=== PATIENT | male | born 1995 | race Caucasian/White ===

== ENCOUNTER 2018-05-11 00:20 | Observation (INO) | payer SELFPAY ==
[2018-05-11] MEDS ORDERED: Albuterol/Ipratropium 3.0-0.5 MG/3 ML Neb Soln ONE (00:22)
[2018-05-11] MEDS ORDERED: predniSONE 20 MG Tab PO ONE (00:26)
[2018-05-11] MEDS ORDERED: Albuterol/Ipratropium 3.0-0.5 MG/3 ML Neb Soln NEB ONE ×2 (00:27→00:35)
--- NOTE | 2018-05-11 00:29 | EDM.PDOC ---
ED HPI GENERAL MEDICAL PROBLEM - General Chief Complaint: Respiratory Problem Stated Complaint: SHORTNESS OF BREATH Time Seen by Provider: 05/11/18 00:27 - History of Present Illness INITIAL COMMENTS - FREE TEXT/NARRATIVE: HISTORY AND PHYSICAL: History of present illness: Patient is 22-year-old white male percent since her shortness of breath and wheezing started earlier tonight he denies fever chills nausea vomiting he did have asthma as a child but states he alkaloid has not use the inhaler for years Review of systems: As per history of present illness and below otherwise all systems reviewed and negative. Past medical history: As per history of present illness and as reviewed below otherwise noncontributory. Surgical history: As per history of present illness and as reviewed below otherwise noncontributory. Social history: No reported history of drug or alcohol abuse. Family history: As per history of present illness and as reviewed below otherwise noncontributory. Physical exam: HEENT: Atraumatic, normocephalic, pupils reactive, negative for conjunctival pallor or scleral icterus, mucous membranes moist, throat clear, neck supple, nontender, trachea midline. Lungs: Bilateral wheezing no rhonchi no crackles, breath sounds equal bilaterally, chest nontender. Heart: S1S2, regular, negative for clicks, rubs, or JVD. Abdomen: Soft, nondistended, nontender. Negative for masses or hepatosplenomegaly. Negative for costovertebral tenderness. Pelvis: Stable nontender. Genitourinary: Deferred. Rectal: Deferred. Extremities: Atraumatic, negative for cords or calf pain. Neurovascular unremarkable. Neuro: Awake, alert, oriented. Cranial nerves II through XII unremarkable. Cerebellum unremarkable. Motor and sensory unremarkable throughout. Exam nonfocal. Diagnostics: Chest x-ray Therapeutics: Albuterol ipratropium nebulizer prednisone 60 mg by mouth Impression: #1 reactive airway disease Definitive disposition and diagnosis as appropriate pending reevaluation and review of above. - Related Data Allergies Allergy/AdvReac Type Severity Reaction Status Date / Time No Known Allergies Allergy Verified 05/11/18 00:34 Home Meds: Home Meds . [No Known Home Meds] 05/11/18 [History] ED ROS GENERAL - Review of Systems Review Of Systems: ROS reveals no pertinent complaints other than HPI. ED EXAM, GENERAL - Physical Exam Exam: See Below (Dictation) Course - Vital Signs Text/Narrative:: Patient's emergency department course has been unremarkable he is some improvement after is not's and oral steroids chest x-ray was unremarkable but patient still said desaturates to 89% off oxygen on oxygen more comfortable in saturates at 90-93%. Patient be admitted as observation as reactive airway disease with hypoxemia Last Recorded V/S: Last Vital Signs Temp 37.7 C 05/11/18 00:31 Pulse 138 H 05/11/18 00:55 Resp 24 H 05/11/18 00:55 BP 167/107 H 05/11/18 00:31 Pulse Ox 92 L 05/11/18 00:55 - Orders/Labs/Meds Orders: Active Orders 24 hr Category Date Time Status RT Aerosol Therapy [RC] ASDIRECTED Care 05/11/18 00:27 Active RT Aerosol Therapy [RC] ASDIRECTED Care 05/11/18 00:35 Active Chest 1V Frontal [CR] Stat Exams 05/11/18 00:27 Taken CBC WITH AUTO DIFF [HEME] Stat Lab 05/11/18 02:12 Ordered CMP [COMPREHENSIVE METABOLIC PN,CMP] [CHEM] Stat Lab 05/11/18 02:12 Ordered Meds: Medications Discontinued Medications Generic Name Dose Route Start Last Admin Trade Name Freq PRN Reason Stop Dose Admin Albuterol/Ipratropium Confirm 05/11/18 00:22 05/11/18 01:45 Duoneb 3.0-0.5 Mg/3 Ml Administered 05/11/18 00:23 3 ml Dose Administration 3 ml .ROUTE .STK-MED ONE Albuterol/Ipratropium 3 ml 05/11/18 00:27 05/11/18 00:31 Duoneb 3.0-0.5 Mg/3 Ml NEB 05/11/18 00:28 3 ml ONETIME ONE Administration Albuterol/Ipratropium 3 ml 05/11/18 00:35 05/11/18 00:37 Duoneb 3.0-0.5 Mg/3 Ml NEB 05/11/18 00:36 3 ml ONETIME ONE Administration Prednisone 60 mg 05/11/18 00:26 05/11/18 00:31 Prednisone PO 05/11/18 00:27 60 mg ONETIME ONE Administration Departure - Departure Time of Disposition: 00:29 Disposition: Refer to Observation Condition: Good Clinical Impression: Reactive airway disease, Hypoxemia - Discharge Information *PRESCRIPTION DRUG MONITORING PROGRAM REVIEWED*: Not Applicable *COPY OF PRESCRIPTION DRUG MONITORING REPORT IN PATIENT [place]: Not Applicable Forms: ED Department Discharge - My Orders Last 24 Hours: My Active Orders 05/11/18 00:27 RT Aerosol Therapy [RC] ASDIRECTED Chest 1V Frontal [CR] Stat 05/11/18 00:35 RT Aerosol Therapy [RC] ASDIRECTED 05/11/18 02:12 CBC WITH AUTO DIFF [HEME] Stat CMP [COMPREHENSIVE METABOLIC PN,CMP] [CHEM] Stat - Assessment/Plan Last 24 Hours: My Active Orders 05/11/18 00:27 RT Aerosol Therapy [RC] ASDIRECTED Chest 1V Frontal [CR] Stat 05/11/18 00:35 RT Aerosol Therapy [RC] ASDIRECTED 05/11/18 02:12 CBC WITH AUTO DIFF [HEME] Stat CMP [COMPREHENSIVE METABOLIC PN,CMP] [CHEM] Stat
[2018-05-11] MEDS ORDERED: Sodium Chloride 0.9% 1,000 ML IV SCH (02:15)
[2018-05-11] MEDS ORDERED: Morphine 10 MG/ML Syringe IVPUSH PRN (02:25)
[2018-05-11] MEDS ORDERED: Sodium Chloride 0.9% 10 ML Syringe FLUSH PRN (02:25)
[2018-05-11] MEDS ORDERED: Sodium Chloride 0.9% 2.5 ML Syringe FLUSH PRN (02:25)
[2018-05-11] MEDS ORDERED: Magnesium Sulfate/Water 2 GM in Premix Bag 1 BAG IV ONE (02:28)
[2018-05-11] MEDS ORDERED: Lactated Ringers 1,000 ML IV SCH (02:30)
[2018-05-11 02:44] LABS: CHLORIDE,CL 105 mmol/L (98-107); SODIUM,NA 140 mmol/L (136-148)
[2018-05-11] MEDS ORDERED: Potassium Chloride 20 MEQ Tab.ER PO ONE ×2 (03:51→10:44)
[2018-05-11] MEDS: methylPREDNISolone Sodium Succinate 40 MG/1 ML SDV IVPUSH SCH ×5 (04:03→23:00)
[2018-05-11] MEDS: Enoxaparin 40 MG/0.4 ML Syringe SUBCUT SCH (04:07)
[2018-05-11] MEDS: Budesonide 0.5 MG/2 ML Neb Susp NEB SCH ×2 (06:29→21:00)
[2018-05-11] MEDS: Albuterol/Ipratropium 3.0-0.5 MG/3 ML Neb Soln NEB PRN ×3 (06:30→21:00)
[2018-05-11] MEDS ORDERED: Morphine 2 MG/ML Syringe IVPUSH PRN (07:36)
--- NOTE | 2018-05-11 11:31 | CR ---
EXAM DATE: 05/11/18 PATIENT'S AGE: 22 Patient: RAVIN TANG Facility: [place], [place] Site . Site : 1995 Study: XRay Chest [id number]/22/2018 12:43:24 AM Ordering Physician: Doctor Rivas Final Report: INDICATION: Shortness of breath. TECHNIQUE: Chest 1 view COMPARISON: None FINDINGS: Cardiovascular and mediastinum: Heart size and vasculature are normal in caliber and appearance. Sternal wires are present. Lungs and pleural spaces: Lungs are clear. No sign of infiltrate or mass. No sign of pleural effusion. No pneumothorax. Bones and soft tissues: No significant findings. IMPRESSION: No acute or specific findings to explain shortness of breath. Dictated by Roque Cisneros MD @ May 11 2018 12:48AM (Electronic Signature) Report Signed by Proxy. MARTINA
[2018-05-11] MEDS: Metoprolol Tartrate 25 MG Tab PO SCH (14:21)
[2018-05-11] MEDS: Pantoprazole 40 MG Tab.CR PO SCH (14:21)
[2018-05-11] MEDS ORDERED: Nitroglycerin 2% Oint 1 GM UD Packet TOP PRN (14:27)
[2018-05-11] MEDS ORDERED: Metoprolol Tartrate 25 MG Tab PO ONE (15:42)
[2018-05-11] MEDS ORDERED: Acetaminophen 325 MG Tab PO PRN (17:19)
[2018-05-11 17:44] LABS: CHLORIDE,CL 106 mmol/L (98-107); SODIUM,NA 139 mmol/L (136-148)
[2018-05-11] MEDS ORDERED: Iopamidol 755 MG/ML 200 ML Multipack Bottle IVPUSH ONE (19:49)
--- NOTE | 2018-05-11 20:44 | PCM.SN ---
- Free Text/Narrative Note: [id number]
--- NOTE | 2018-05-11 22:06 | HP ---
DATE OF : 1995 PRIMARY CARE PHYSICIAN: None PCP HISTORY OF PRESENT ILLNESS: The patient is a 22-year-old man, who presented to emergency room because of wheezing and shortness of breath that started yesterday in the afternoon. The patient did not do any strenuous activities. 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 He denies any history of asthma before, other than he was given one time inhaler in childhood. No cough. No fever. 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 During the surgery, he also had aortic dissection and bled to . As per patient, "he was medically for 20 minutes "and afterwards came back.He had an aortic stent placed in the aorta and he was advised to have no contact sports. He came from [place] 5 years ago. 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 ALLERGIES: The patient does not have any allergies. PAST SURGICAL HISTORY: As above. PAST MEDICAL HISTORY: As above in HPI. The patient had open-heart surgery at age 10 and closed _ two openings in his heart. He also had aortic disection and cardiac arrest. Regarding allergy, he also complained of stuffy nose, itchy eyes sometimes. SOCIAL HISTORY: He smokes vape. He did not smoke any cigarettes for the past six months. He used to smoke half a pack to one pack per day. Alcohol socially. No drug use. FAMILY HISTORY: Regarding his family history, he used to live with his grandmother who raised him, who has multiple sclerosis. His mom and his father, he does not have any contact with them. PHYSICAL EXAMINATION: VITAL SIGNS: At admission, the patient had a temperature of 100 Fahrenheit, pulse rate was 129, blood pressure 167/107, respiratory rate 26, and the patient was hypoxic at room air. He was saturating 92% on 3 L. HEENT: His head is atraumatic, normocephalic. Pupils are equally reactive to light. NECK: Supple. No thyromegaly. No lymphadenopathy. HEART: S1 and S2. Tachycardic. LUNGS: Decreased air entry. Bilateral wheezing. ABDOMEN: Soft, nontender. Positive bowel sounds. EXTREMITIES: No edema. NEUROLOGIC: The patient is alert and oriented x3. There are no gross focal neurologic deficits. The patient, during the acute episode of dyspnea, he had chest tightness. LABORATORY DATA: At admission, WBC 9.55, hematocrit 45.6, hemoglobin 16.6, and platelet count is 202. D-dimer less than 0.19. Sodium 140, potassium 3.1, CO2 of 27, BUN 13, creatinine 1.1, glucose 128, calcium 8.9, total bilirubin 0.5, AST 20, ALT 22, alkaline phosphatase 101. Troponin less than 0.05. Total protein 7.4, albumin 4.1, globulin 3.9. BNP 25. Chest x-ray was negative. Shows sternotomy wires. Lungs and pleural spaces are clear. His EKG shows sinus tachycardia, 116, repolarization abnormality suggest ischemia in inferior leads, ST depression, thinning at in leads II, III, and aVF. Borderline ST elevation on anterolateral leads. ST more than 0.06 mV in leads I, aVL, V2, V6. ASSESSMENT: 1. Asthma exacerbation, respiratory failure, hypoxic. 2. History of aortic dissection. 3. Abnormal EKG. 4. Ischemia on EKG. 5. Sinus tachycardia. 6. History of congenital heart defect, status post repair. 7. Vape smoking. 8. Exposure to fumes. PLAN: We will admit the patient to medical telemetry. We will order three sets of cardiac enzymes. We will give the patient Solu-Medrol. The patient was started on Solu-Medrol 60 mg q.6 hours and after a few doses, the Solu-Medrol was increased to 125 mg q.6 hours. He was given DuoNeb one nebulizer treatment q.4 hours p.r.n., budesonide 0.5 mg inh b.i.d. and peak flow q.6 hours. His peak flow was low in 200 and did not improve with nebulizer treatment. For sinus tachycardia, he was given metoprolol 50 mg p.o. in two dosages, 25 and another 25 because heart rate was not controlled and Cardiology consult was called. The patient was advised to wear a mask at work or to change his job so he will not be exposed to fumes and to not smoke vapes or cigarettes anymore considering his severity of asthma. For DVT prophylaxis, he was given Lovenox 40 mg subcutaneous q.24 hours. Also at admission, he was given magnesium sulfate 2 g IV. For GI prophylaxis, he was placed on Protonix 40 mg p.o. daily. For hypokalemia, he was given potassium chloride 40 mEq p.o. twice. Repeat BMP shows his potassium corrected to 4.4. Cardiology consult and records were ordered from [facility] in [place] ESTEE / CRISTIAN /[id number] MTDD
[2018-05-11] MEDS: Levofloxacin/Dextrose 5%-Water 750 MG in Premix Bag 1 BAG IV SCH (23:00)
[2018-05-12] MEDS: Metoprolol Tartrate 25 MG Tab PO SCH ×2 (00:30→13:20)
[2018-05-12] MEDS: Enoxaparin 40 MG/0.4 ML Syringe SUBCUT SCH (02:30)
[2018-05-12] MEDS: methylPREDNISolone Sodium Succinate 40 MG/1 ML SDV IVPUSH SCH ×4 (05:27→23:32)
[2018-05-12] MEDS: Budesonide 0.5 MG/2 ML Neb Susp NEB SCH ×2 (08:34→20:33)
[2018-05-12] MEDS: Pantoprazole 40 MG Tab.CR PO SCH (08:34)
--- NOTE | 2018-05-12 08:53 | CT ---
EXAM DATE: 05/11/18 PATIENT'S AGE: 22 Patient: RAVIN TANG Facility: [place], [place] : 1995 Study: CT Chest/Abd Angio [id number]/22/2018 9:40:00 PM Ordering Physician: Gatito Bailey Final Report: INDICATION: Shortness of breath TECHNIQUE: CTA chest and abdomen acquired with 100 cc Isovue 370 IV contrast. COMPARISON: Chest radiograph same date FINDINGS: Chest: Cardiovascular structures: No aortic dissection or aortic aneurysm. Postoperative changes of a median sternotomy. Heart size is normal. Mediastinum and janna: No mass or adenopathy. There is a small amount of pneumomediastinum in the AP window and left infrahilar region. The esophagus, trachea, and main stem bronchi are normal in appearance. There is no fat stranding within the mediastinum. Lungs: Small focus of ground-glass opacity in the left upper lobe. Pleura and pericardium: No effusions. No pneumothorax. Chest wall and axilla: No mass or adenopathy. Bones: Unremarkable for age. Abdomen: Liver: There is a slightly hyperdense 2.7 x 3.9 x 3.3 cm mass at the hepatic dome on image 497 series 501. There is a 1.0 cm hyperdense mass within the liver on image 22 series 504. Spleen: Unremarkable. Pancreas: Unremarkable. Gallbladder and bile ducts: Unremarkable. Adrenal glands: Unremarkable. Kidneys: Unremarkable. GI tract: Unremarkable. Vascular structures: No aortic dissection or aortic aneurysm. Lymph nodes: Unremarkable. Miscellaneous: Unremarkable. No free air or significant free fluid. Bones: Unremarkable for age. IMPRESSION: No aortic aneurysm or aortic dissection. Small amount of pneumomediastinum of unknown etiology. Small focus of ground-glass opacity in the left upper lobe may represent infection. Two hyperdense hepatic masses. Although these may represent atypical hemangiomas , recommend MR for further characterization. These findings were discussed with Dr. Bailey at 10:38 p.m. on May 11, 2018. Please note that all CT scans at this facility use dose modulation, iterative reconstruction, and/or weight-based dosing when appropriate to reduce radiation dose to as low as reasonably achievable. Dictated by Wen Shine MD @ May 11 2018 10:15PM (Electronic Signature) Report Signed by Proxy. [facility]
--- NOTE | 2018-05-12 08:54 | CT ---
EXAM DATE: 05/11/18 PATIENT'S AGE: 22 Patient: RAVIN TANG Facility: [place], [place] : 1995 Study: CT Chest/Abd Angio [id number]/22/2018 9:40:00 PM Ordering Physician: Gatito Bailey Final Report: INDICATION: Shortness of breath TECHNIQUE: CTA chest and abdomen acquired with 100 cc Isovue 370 IV contrast. COMPARISON: Chest radiograph same date FINDINGS: Chest: Cardiovascular structures: No aortic dissection or aortic aneurysm. Postoperative changes of a median sternotomy. Heart size is normal. Mediastinum and janna: No mass or adenopathy. There is a small amount of pneumomediastinum in the AP window and left infrahilar region. The esophagus, trachea, and main stem bronchi are normal in appearance. There is no fat stranding within the mediastinum. Lungs: Small focus of ground-glass opacity in the left upper lobe. Pleura and pericardium: No effusions. No pneumothorax. Chest wall and axilla: No mass or adenopathy. Bones: Unremarkable for age. Abdomen: Liver: There is a slightly hyperdense 2.7 x 3.9 x 3.3 cm mass at the hepatic dome on image 497 series 501. There is a 1.0 cm hyperdense mass within the liver on image 22 series 504. Spleen: Unremarkable. Pancreas: Unremarkable. Gallbladder and bile ducts: Unremarkable. Adrenal glands: Unremarkable. Kidneys: Unremarkable. GI tract: Unremarkable. Vascular structures: No aortic dissection or aortic aneurysm. Lymph nodes: Unremarkable. Miscellaneous: Unremarkable. No free air or significant free fluid. Bones: Unremarkable for age. IMPRESSION: No aortic aneurysm or aortic dissection. Small amount of pneumomediastinum of unknown etiology. Small focus of ground-glass opacity in the left upper lobe may represent infection. Two hyperdense hepatic masses. Although these may represent atypical hemangiomas , recommend MR for further characterization. These findings were discussed with Dr. Bailey at 10:38 p.m. on May 11, 2018. Please note that all CT scans at this facility use dose modulation, iterative reconstruction, and/or weight-based dosing when appropriate to reduce radiation dose to as low as reasonably achievable. Dictated by Wen Shine MD @ May 11 2018 10:15PM (Electronic Signature) Report S[facility] Proxy. [facility]
[2018-05-12] MEDS: Albuterol/Ipratropium 3.0-0.5 MG/3 ML Neb Soln NEB PRN ×3 (09:30→20:32)
[2018-05-12 10:37] LABS: CHLORIDE,CL 106 mmol/L (98-107); SODIUM,NA 141 mmol/L (136-148)
--- NOTE | 2018-05-12 12:05 | CONS ---
DATE OF CONSULTATION: 05/12/2018 DATE OF : 1995 PRIMARY CARE PHYSICIAN: None PCP REASON FOR CONSULTATION: Chest pain and EKG changes. HISTORY OF PRESENT ILLNESS: This is a 22-year-old male who has a history of primum ASD, cleft mitral valve, and small VSD, status post repair atrioventricular septal defect with closed , mitral valve replacement in the past, was found atrial septal defect portion of small VSD and with status post aortic repair over the past. He presented to the hospital with an acute onset of sudden shortness of breath with tightness with breathing. He has had wheezing, and he also reports coughing but no fever. When he came to the emergency room, he is found to have expiratory wheezing and was treated with nebulizer treatment and had panic attack, and he was admitted to the hospital. During the hospital stay, his heart rate raised up from 80 to 148, and we did an EKG which showed some ST changes along with chest tightness and that was the reason why the patient was admitted. He just though his chest pain is left rib cage pain, it was sharp, and that was worse with a deep inspiration. It was a brief pain, but it has recurred multiple times. He is still getting the nebulized treatment, still has wheezing. PAST MEDICAL HISTORY: Include primum ASD with a small VSD and a cleft mitral valve, status post repair; as well as intraoperative aortic tear, status post aortic repair in the ascending aorta; and asthma. SOCIAL HISTORY: He smokes half a pack per day, but he stopped when he moved up here. He drinks alcohol. No drug use. FAMILY HISTORY: No family history of heart disease. CURRENT MEDICATIONS: Include: 1. Pulmicort nebulizer treatment. 2. Levofloxacin. 3. Solu-Medrol. 4. Metoprolol 25 q.12 hours. 5. Nitroglycerin patch. REVIEW OF SYSTEMS: Except indicated in the HPI, otherwise, has been negative. PHYSICAL EXAMINATION: VITAL SIGNS: Initial blood pressure 167/107; when I saw him yesterday, it was 111/66; heart rate of 16 to 26; temperature 36.7; and O2 saturation 94% on 4 L. HEENT AND NECK: No pallor. No jaundice. No JVD. No carotid bruits. HEART: Tachycardia. No murmur. Regular rate and rhythm. No gallop. LUNGS: Expiratory wheezing bilaterally. ABDOMEN: Soft and nontender. Bowel sounds are present. No hepatosplenomegaly. No rebound tenderness. No guarding. EXTREMITIES: No edema. LABORATORY INVESTIGATION: CBC showed WBC 9, hematocrit of 45, hemoglobin of 16, and platelet 202. D-dimer less than 0.19. Sodium 140, potassium 3.1, chloride 105, bicarb 27, BUN 13, creatinine 1.1, and glucose 128. Troponin was negative x1, and BNP is negative. IMAGING: Chest x-ray: I did not appreciate any consolidations on the chest x-ray as well as pulmonary vascular congestion. ASSESSMENT AND PLAN: This is a 22-year-old male who has a history of atrial septal defect primum as well as a small ventricular septal defect, status post repair with a cleft mitral valve with intraoperative aortic tear, status post aortic repair with a patch, presented to the hospital with asthmatic attack, being treated with nebulized treatment as well as the steroid injection, but the chest pain, it was less likely to be cardiac. It is found to be pleuritic chest pain or musculoskeletal and it was on the EKG changes. Decided on EKG, it was nonspecific, and I believe could be related to the prior cardiac surgery he had when he was young. Recommended to treat the asthmatic attack per hospitalist, and I will order a chest CT angiogram to assess the aortic repair to make sure there is no aneurysm around the repair area and also recommended to do echocardiogram to assess the mitral valve as well as to see if any intracardiac shunt as well. EKG on May 11, 2018, showed a heart rate of 116, QRS duration 98, and QTc interval of 402. There is a nonspecific ST abnormality in lead III, otherwise, it looks unremarkable. CHRIS / CRISTIAN /[id number]
[2018-05-12] MEDS: Lactated Ringers 1,000 ML IV SCH (17:02)
[2018-05-12] MEDS: guaiFENesin 100 MG/5 ML Soln 10 ML UD Cup PO SCH (17:06)
[2018-05-12] MEDS ORDERED: Magnesium Sulfate/Water 2 GM in Premix Bag 1 BAG IV ONE (18:26)
[2018-05-12] MEDS ORDERED: Lactated Ringers 1,000 ML IV SCH (18:30)
[2018-05-12] MEDS ORDERED: Hydrocortisone Sodium Succinate 100 MG/2 ML SDV IVPUSH SCH (18:30)
[2018-05-12] MEDS: Levofloxacin/Dextrose 5%-Water 750 MG in Premix Bag 1 BAG IV SCH (23:32)
[2018-05-13] MEDS: guaiFENesin 100 MG/5 ML Soln 10 ML UD Cup PO SCH ×3 (00:41→11:46)
[2018-05-13] MEDS: Metoprolol Tartrate 25 MG Tab PO SCH (00:41)
[2018-05-13] MEDS: Enoxaparin 40 MG/0.4 ML Syringe SUBCUT SCH (02:00)
[2018-05-13] MEDS: Lactated Ringers 1,000 ML IV SCH (05:34)
[2018-05-13] MEDS: methylPREDNISolone Sodium Succinate 40 MG/1 ML SDV IVPUSH SCH ×2 (05:35→11:46)
[2018-05-13] MEDS: Albuterol/Ipratropium 3.0-0.5 MG/3 ML Neb Soln NEB PRN (08:57)
[2018-05-13] MEDS: Budesonide 0.5 MG/2 ML Neb Susp NEB SCH (08:57)
[2018-05-13] MEDS: Pantoprazole 40 MG Tab.CR PO SCH (09:39)
--- NOTE | 2018-05-13 14:46 | PCM.DCSUM1 ---
Discharge Summary - Hospital Course HPI Initial Comments: Patient is a 21 years old man was admitted in the hospital of with onset of asthma exacerbation. 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 Patient had cardiology consult with Dr. Baca because he's had it was beating that 147 at night for the half an hour and also he had history of open heart surgery and his EKG showing ischemia. [employer] order for patient CT angiogram chest and CT angiogram abdomen. CT angiogram chest showed patient has a pneumonia on the left upper lobe. He was started on levofloxacin 750 mg IV every 24 hours, also he was given Robitussin cough syrup for his dry cough. Patient had temperature recognition 100 Fahrenheit, no other higher temperatures. CT angiogram abdomen show patient has a 2 masses in the liver. Patient had MRI of the abdomen with gadolinium as per recommendation of radiology about the test was suboptimal and it was recommended patient should have three-phase CT of the liver. Patient was given prescription to have CT 3 phase of the liver is outpatient and to follow up with his PCP. Patient was discharged home today with levofloxacin for another 7 days and prednisone 40 mg by mouth daily for 5 days, Advair 250/50 inh twice a day and DuoNeb nebulizer treatment, he was given prescription for 100 ampulas . He was also advised to return to work without chemicals and to Not Smoke vape and avoid pet dander - Patient Instructions Diet: Regular Diet as Tolerated Activity: As Tolerated Driving: May Drive Today Showering/Bathing: May Shower Other/Special Instructions: Avoid exposure to fumes and smoke , avoid pet dander . alrgy testing as outpatient - Discharge Plan *PRESCRIPTION DRUG MONITORING PROGRAM REVIEWED*: Not Applicable *COPY OF PRESCRIPTION DRUG MONITORING REPORT IN PATIENT [place]: Not Applicable Prescriptions/Med Rec: Albuterol/Ipratropium [DuoNeb 3.0-0.5 MG/3 ML] 3 ml .XX Q4H #100 neb Fluticasone/Salmeterol [Advair 250-50 Diskus] 1 each IH BID #1 disk.w.dev guaiFENesin [Robitussin] 200 mg PO QID #1 cup levoFLOXacin [Levaquin] 750 mg PO DAILY #10 tab Metoprolol Tartrate [Lopressor] 25 mg PO Q12H #120 tablet Pantoprazole [ProTONIX] 40 mg PO DAILY #30 tab.cr predniSONE [Prednisone] 20 mg PO BID 10 Days #5 tablet Home Medications: Home Meds Albuterol/Ipratropium [DuoNeb 3.0-0.5 MG/3 ML] 3 ml .XX Q4H #100 neb 05/13/18 [ Rx] Fluticasone/Salmeterol [Advair 250-50 Diskus] 1 each IH BID #1 disk.w.dev [Rx] Metoprolol Tartrate [Lopressor] 25 mg PO Q12H #120 tablet 05/13/18 [Rx] Pantoprazole [ProTONIX] 40 mg PO DAILY #30 tab.cr 05/13/18 [Rx] guaiFENesin [Robitussin] 200 mg PO QID #1 cup 05/13/18 [Rx] levoFLOXacin [Levaquin] 750 mg PO DAILY #10 tab 05/13/18 [Rx] predniSONE [Prednisone] 20 mg PO BID 10 Days #5 tablet 05/13/18 [Rx] Patient Handouts: Metoprolol tablets, Guaifenesin oral solution and syrup, Asthma, Adult, [id number], Pantoprazole tablets, Levofloxacin tablets, Albuterol; Ipratropium solution for inhalation, Prednisone tablets, Fluticasone ; Salmeterol inhalation aerosol Referrals: [facility] [Outside] Kendall Bauer MD [Physician] - 05/25/18 9:00 am - Review of Systems HEENT: Reports: No Symptoms Pulmonary: Reports: Wheezing Cardiovascular: Reports: No Symptoms Gastrointestinal: Reports: No Symptoms Genitourinary: Reports: No Symptoms Musculoskeletal: Reports: No Symptoms - Patient Data Vitals - Most Recent: Last Vital Signs Temp 98.2 F 05/13/18 12:00 Pulse 94 05/13/18 12:00 Resp 20 05/13/18 12:00 BP 168/69 H 05/13/18 12:00 Pulse Ox 93 L 05/13/18 12:00 Weight - Most Recent: 157 lb I&O - Last 24 hours: Intake & Output 05/12/18 05/13/18 05/13/18 22:59 06:59 14:59 Intake Total 1250 1650 800 Output Total 1000 1000 Balance 250 650 800 NICK Results - Last 24 hrs: Microbiology 05/11/18 21:48 Aerobic Blood Culture - Preliminary Blood NO GROWTH AFTER 1 DAY Anaerobic Blood Culture - Preliminary NO GROWTH AFTER 1 DAY Med Orders - Current: Current Medications Discontinued Medications Acetaminophen (Tylenol) 650 mg PO Q6H PRN PRN Reason: Pain Albuterol/Ipratropium (Duoneb 3.0-0.5 Mg/3 Ml) Confirm Administered Dose 3 ml .ROUTE .STK-MED ONE Stop: 05/11/18 00:23 Last Admin: 05/11/18 01:45 Dose: 3 ml Albuterol/Ipratropium (Duoneb 3.0-0.5 Mg/3 Ml) 3 ml NEB ONETIME ONE Stop: 05/11/18 00:28 Last Admin: 05/11/18 00:31 Dose: 3 ml Albuterol/Ipratropium (Duoneb 3.0-0.5 Mg/3 Ml) 3 ml NEB ONETIME ONE Stop: 05/11/18 00:36 Last Admin: 05/11/18 00:37 Dose: 3 ml Albuterol/Ipratropium (Duoneb 3.0-0.5 Mg/3 Ml) 3 ml NEB Q4HRRT PRN PRN Reason: sob , wheezing Last Admin: 05/13/18 08:57 Dose: 3 ml Budesonide (Pulmicort) 0.5 mg NEB BIDRT [facility] Last Admin: 05/12/18 08:34 Dose: 0.5 mg Budesonide (Pulmicort) 0.5 mg NEB BID [facility] Last Admin: 05/13/18 08:57 Dose: 0.5 mg Enoxaparin Sodium (Lovenox) 40 mg SUBCUT Q24H [facility] Last Admin: 05/13/18 02:00 Dose: 40 mg Guaifenesin (Robitussin) 200 mg PO QID [facility] Last Admin: 05/13/18 11:46 Dose: 200 mg Hydrocortisone Sodium Succinate (Solu-Cortef) 40 mg IVPUSH Q8H [facility] Last Admin: 05/12/18 19:03 Dose: Not Given Sodium Chloride (Normal Saline) 1,000 mls @ 125 mls/hr IV ASDIRECTED [facility] Last Admin: 05/11/18 02:21 Dose: 125 mls/hr Lactated Ringer's (Ringers, Lactated) 1,000 mls @ 125 mls/hr IV ASDIRECTED [facility] Last Admin: 05/11/18 05:32 Dose: 125 mls/hr Magnesium Sulfate 2 gm/ Premix 50 mls @ 50 mls/hr IV ONETIME ONE Stop: 05/11/18 03:27 Last Admin: 05/11/18 04:03 Dose: 50 mls/hr Levofloxacin/Dextrose 750 mg/ (Premix) 150 mls @ 100 mls/hr IV Q24H [facility] Last Admin: 05/12/18 23:32 Dose: 100 mls/hr Lactated Ringer's (Ringers, Lactated) 1,000 mls @ 100 mls/hr IV ASDIRECTED [facility] Last Admin: 05/13/18 05:34 Dose: 100 mls/hr Lactated Ringer's (Ringers, Lactated) 1,000 mls @ 125 mls/hr IV ASDIRECTED [facility] Magnesium Sulfate 2 gm/ Premix 50 mls @ 50 mls/hr IV ONETIME ONE Stop: 05/12/18 19:25 Last Admin: 05/12/18 19:02 Dose: 50 mls/hr Iopamidol (Isovue Multipack-370 (76%)) 100 ml IVPUSH ONETIME ONE Stop: 05/11/18 19:50 Last Admin: 05/11/18 19:49 Dose: 100 ml Methylprednisolone Sodium Succinate (Solu-Medrol) 60 mg IVPUSH Q6H [facility] Last Admin: 05/11/18 14:23 Dose: 60 mg Methylprednisolone Sodium Succinate (Solu-Medrol) 125 mg IVPUSH Q6H [facility] Last Admin: 05/12/18 17:01 Dose: 125 mg Methylprednisolone Sodium Succinate (Solu-Medrol) 40 mg IVPUSH Q6H [facility] Last Admin: 05/13/18 11:46 Dose: 40 mg Metoprolol Tartrate (Lopressor) 25 mg PO Q12H [facility] Last Admin: 05/13/18 00:41 Dose: 25 mg Metoprolol Tartrate (Lopressor) 25 mg PO ONETIME ONE Stop: 05/11/18 15:43 Last Admin: 05/11/18 15:56 Dose: 25 mg Morphine Sulfate (Morphine) 2 mg IVPUSH Q2H PRN PRN Reason: Pain (severe 7-10) Stop: 05/12/18 02:26 Morphine Sulfate (Morphine) 2 mg IVPUSH Q2H PRN PRN Reason: Pain (severe 7-10) Stop: 05/12/18 02:26 Nitroglycerin (Nitro-Bid 2%) 1 gm TOP Q6H PRN PRN Reason: Chest Pain Last Admin: 05/11/18 15:57 Dose: 1 gm Pantoprazole Sodium (Protonix) 40 mg PO DAILY [facility] Last Admin: 05/13/18 09:39 Dose: 40 mg Potassium Chloride (Klor-Con M20) 40 meq PO ONETIME ONE Stop: 05/11/18 03:52 Last Admin: 05/11/18 04:13 Dose: 40 meq Potassium Chloride (Klor-Con M20) 40 meq PO ONETIME ONE Stop: 05/11/18 10:45 Last Admin: 05/11/18 11:17 Dose: 40 meq Prednisone (Prednisone) 60 mg PO ONETIME ONE Stop: 05/11/18 00:27 Last Admin: 05/11/18 00:31 Dose: 60 mg Sodium Chloride (Saline Flush) 10 ml FLUSH ASDIRECTED PRN PRN Reason: Keep Vein Open Sodium Chloride (Saline Flush) 2.5 ml FLUSH ASDIRECTED PRN PRN Reason: Keep Vein Open - Exam General: Reports: Alert, Oriented HEENT: Reports: Pupils Equal, Pupils Reactive Neck: Reports: Supple, Trachea Midline, No JVD Lungs: Reports: Wheezing GI/Abdominal Exam: Normal Bowel Sounds, Soft, Non-Tender Back Exam: Reports: Normal Inspection Extremities: Normal Inspection Skin: Reports: Warm Neurological: Reports: No New Focal Deficit Psy/Mental Status: Reports: Alert
--- NOTE | 2018-05-13 14:46 | PCM.PN ---
- General Info Date of Service: 05/12/18 - Patient Data Vitals - Most Recent: Last Vital Signs Temp 98.2 F 05/13/18 12:00 Pulse 94 05/13/18 12:00 Resp 20 05/13/18 12:00 BP 168/69 H 05/13/18 12:00 Pulse Ox 93 L 05/13/18 12:00 Weight - Most Recent: 157 lb I&O - Last 24 Hours: Intake & Output 05/12/18 05/13/18 05/13/18 22:59 06:59 14:59 Intake Total 1250 1650 800 Output Total 1000 1000 Balance 250 650 800 Patrice Results Last 24 Hours: Microbiology 05/11/18 21:48 Aerobic Blood Culture - Preliminary Blood NO GROWTH AFTER 1 DAY Anaerobic Blood Culture - Preliminary NO GROWTH AFTER 1 DAY Med Orders - Current: Current Medications Discontinued Medications Acetaminophen (Tylenol) 650 mg PO Q6H PRN PRN Reason: Pain Albuterol/Ipratropium (Duoneb 3.0-0.5 Mg/3 Ml) Confirm Administered Dose 3 ml .ROUTE .STK-MED ONE Stop: 05/11/18 00:23 Last Admin: 05/11/18 01:45 Dose: 3 ml Albuterol/Ipratropium (Duoneb 3.0-0.5 Mg/3 Ml) 3 ml NEB ONETIME ONE Stop: 05/11/18 00:28 Last Admin: 05/11/18 00:31 Dose: 3 ml Albuterol/Ipratropium (Duoneb 3.0-0.5 Mg/3 Ml) 3 ml NEB ONETIME ONE Stop: 05/11/18 00:36 Last Admin: 05/11/18 00:37 Dose: 3 ml Albuterol/Ipratropium (Duoneb 3.0-0.5 Mg/3 Ml) 3 ml NEB Q4HRRT PRN PRN Reason: sob , wheezing Last Admin: 05/13/18 08:57 Dose: 3 ml Budesonide (Pulmicort) 0.5 mg NEB BIDRT [facility] Last Admin: 05/12/18 08:34 Dose: 0.5 mg Budesonide (Pulmicort) 0.5 mg NEB BID [facility] Last Admin: 05/13/18 08:57 Dose: 0.5 mg Enoxaparin Sodium (Lovenox) 40 mg SUBCUT Q24H [facility] Last Admin: 05/13/18 02:00 Dose: 40 mg Guaifenesin (Robitussin) 200 mg PO QID [facility] Last Admin: 05/13/18 11:46 Dose: 200 mg Hydrocortisone Sodium Succinate (Solu-Cortef) 40 mg IVPUSH Q8H [facility] Last Admin: 05/12/18 19:03 Dose: Not Given Sodium Chloride (Normal Saline) 1,000 mls @ 125 mls/hr IV ASDIRECTED [facility] Last Admin: 05/11/18 02:21 Dose: 125 mls/hr Lactated Ringer's (Ringers, Lactated) 1,000 mls @ 125 mls/hr IV ASDIRECTED [facility] Last Admin: 05/11/18 05:32 Dose: 125 mls/hr Magnesium Sulfate 2 gm/ Premix 50 mls @ 50 mls/hr IV ONETIME ONE Stop: 05/11/18 03:27 Last Admin: 05/11/18 04:03 Dose: 50 mls/hr Levofloxacin/Dextrose 750 mg/ (Premix) 150 mls @ 100 mls/hr IV Q24H [facility] Last Admin: 05/12/18 23:32 Dose: 100 mls/hr Lactated Ringer's (Ringers, Lactated) 1,000 mls @ 100 mls/hr IV ASDIRECTED [facility] Last Admin: 05/13/18 05:34 Dose: 100 mls/hr Lactated Ringer's (Ringers, Lactated) 1,000 mls @ 125 mls/hr IV ASDIRECTED [facility] Magnesium Sulfate 2 gm/ Premix 50 mls @ 50 mls/hr IV ONETIME ONE Stop: 05/12/18 19:25 Last Admin: 05/12/18 19:02 Dose: 50 mls/hr Iopamidol (Isovue Multipack-370 (76%)) 100 ml IVPUSH ONETIME ONE Stop: 05/11/18 19:50 Last Admin: 05/11/18 19:49 Dose: 100 ml Methylprednisolone Sodium Succinate (Solu-Medrol) 60 mg IVPUSH Q6H [facility] Last Admin: 05/11/18 14:23 Dose: 60 mg Methylprednisolone Sodium Succinate (Solu-Medrol) 125 mg IVPUSH Q6H [facility] Last Admin: 05/12/18 17:01 Dose: 125 mg Methylprednisolone Sodium Succinate (Solu-Medrol) 40 mg IVPUSH Q6H [facility] Last Admin: 05/13/18 11:46 Dose: 40 mg Metoprolol Tartrate (Lopressor) 25 mg PO Q12H [facility] Last Admin: 05/13/18 00:41 Dose: 25 mg Metoprolol Tartrate (Lopressor) 25 mg PO ONETIME ONE Stop: 05/11/18 15:43 Last Admin: 05/11/18 15:56 Dose: 25 mg Morphine Sulfate (Morphine) 2 mg IVPUSH Q2H PRN PRN Reason: Pain (severe 7-10) Stop: 05/12/18 02:26 Morphine Sulfate (Morphine) 2 mg IVPUSH Q2H PRN PRN Reason: Pain (severe 7-10) Stop: 05/12/18 02:26 Nitroglycerin (Nitro-Bid 2%) 1 gm TOP Q6H PRN PRN Reason: Chest Pain Last Admin: 05/11/18 15:57 Dose: 1 gm Pantoprazole Sodium (Protonix) 40 mg PO DAILY [facility] Last Admin: 05/13/18 09:39 Dose: 40 mg Potassium Chloride (Klor-Con M20) 40 meq PO ONETIME ONE Stop: 05/11/18 03:52 Last Admin: 05/11/18 04:13 Dose: 40 meq Potassium Chloride (Klor-Con M20) 40 meq PO ONETIME ONE Stop: 05/11/18 10:45 Last Admin: 05/11/18 11:17 Dose: 40 meq Prednisone (Prednisone) 60 mg PO ONETIME ONE Stop: 05/11/18 00:27 Last Admin: 05/11/18 00:31 Dose: 60 mg Sodium Chloride (Saline Flush) 10 ml FLUSH ASDIRECTED PRN PRN Reason: Keep Vein Open Sodium Chloride (Saline Flush) 2.5 ml FLUSH ASDIRECTED PRN PRN Reason: Keep Vein Open - My Orders Last 24 Hours: My Active Orders 05/13/18 12:43 Ready for Discharge [RC] PER UNIT ROUTINE
--- NOTE | 2018-05-13 18:46 | MR ---
EXAM DATE: 05/11/18 PATIENT'S AGE: 22 Patient: RAVIN TANG Facility: [place], [place] Site . Site : 1994 Study: MRI Abdomen [id number]/23/2018 10:41:11 AM Ordering Physician: Leo Mederos Final Report: INDICATION: Liver mass seen on the previous CT from May 11, 2018; further assessment . Comparison: CT angio chest, abdomen and pelvis May 11, 2018. TECHNIQUE: Precontrast T1 and T2 weighted imaging; diffusion weighted imaging; in and out of phase imaging; T2 haste imaging. FINDINGS: A 3.9 x 2.9 cm lesion identified at the confluence of segments 5 and 8 of the liver. The lesion has slightly higher signal than rest of the liver. There is appearance of a central scar. No evidence of restriction of diffusion. No fat present within the lesion. No other abnormalities are identified involving the liver, spleen or pancreas. Gallbladder is unremarkable. No adrenal pathology. No obstructive uropathy or perinephric pathology. No evidence of abdominal ascites. No retroperitoneal lymphadenopathy. Without intravenous injection of contrast, it is difficult to further characterize the lesion. 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 IMPRESSION: 1. 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 2. No other abnormalities are identified. Dictated by Francine Ang MD @ May 12 2018 11:15AM (Electronic Signature) Report Signed by Proxy. MARTINA
--- NOTE | 2018-05-13 19:11 | MR ---
EXAM DATE: 05/11/18 PATIENT'S AGE: 22 Patient: RAVIN TANG Facility: [place], [place] Site . Site : 1994 Study: MRI Abdomen [id number]/23/2018 1:03:47 PM Ordering Physician: Leo Mederos Final Report: INDICATION: Liver mass. Follow-up post-contrast images. TECHNIQUE: Abdominal MRI with progressively delayed post-contrast images. Intravenous gadolinium administered. COMPARISON: CT scan of the chest, abdomen, and pelvis dated 11 May 2018. FINDINGS: Suboptimal post-contrast images due to patient feeling ill causing motion artifact. No arterial phase postcontrast images obtained. IMPRESSION: 1. Suboptimal post-contrast images due to patient feeling ill during the injection and scan. The lesion is more easily visualized by CT and a triphasic CT scan of the liver could be considered. Dictated by Rehan Conley MD @ 05/12/2018 1:44:42 PM Dictated by: Rehan Conley MD @ 05/12/2018 13:45:02 (Electronic Signature) Report Signed by Proxy. [facility]even
--- NOTE | 2018-05-13 21:38 | PCM.PN ---
- General Info Date of Service: 05/12/18 Subjective Update: Patient feeling better today still wheezing he had improved peak flow. Heart rate was better controlled, below 100. 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 Patient had MRI odf the abdomen , radiology recommended contrast , report pending. Also CT angio chest showed patient has infiltrates in the left upper lung and patient was started last night on IV levofloxacin and today he was given robitussin for cough Functional Status: Reports: Pain Controlled - Review of Systems General: Reports: No Symptoms HEENT: Reports: No Symptoms Pulmonary: Reports: No Symptoms Cardiovascular: Reports: No Symptoms Gastrointestinal: Reports: No Symptoms Genitourinary: Reports: No Symptoms Musculoskeletal: Reports: No Symptoms Skin: Reports: No Symptoms Neurological: Reports: No Symptoms Psychiatric: Reports: No Symptoms - Patient Data Vitals - Most Recent: Last Vital Signs Temp 98.2 F 05/13/18 12:00 Pulse 94 05/13/18 12:00 Resp 20 05/13/18 12:00 BP 168/69 H 05/13/18 12:00 Pulse Ox 93 L 05/13/18 12:00 Weight - Most Recent: 157 lb I&O - Last 24 Hours: Intake & Output 05/13/18 05/13/18 05/13/18 06:59 14:59 22:59 Intake Total 1650 800 Output Total 1000 Balance 650 800 Patrice Results Last 24 Hours: Microbiology 05/11/18 21:48 Aerobic Blood Culture - Preliminary Blood NO GROWTH AFTER 1 DAY Anaerobic Blood Culture - Preliminary NO GROWTH AFTER 1 DAY Med Orders - Current: Current Medications Discontinued Medications Acetaminophen (Tylenol) 650 mg PO Q6H PRN PRN Reason: Pain Albuterol/Ipratropium (Duoneb 3.0-0.5 Mg/3 Ml) Confirm Administered Dose 3 ml .ROUTE .STK-MED ONE Stop: 05/11/18 00:23 Last Admin: 05/11/18 01:45 Dose: 3 ml Albuterol/Ipratropium (Duoneb 3.0-0.5 Mg/3 Ml) 3 ml NEB ONETIME ONE Stop: 05/11/18 00:28 Last Admin: 05/11/18 00:31 Dose: 3 ml Albuterol/Ipratropium (Duoneb 3.0-0.5 Mg/3 Ml) 3 ml NEB ONETIME ONE Stop: 05/11/18 00:36 Last Admin: 05/11/18 00:37 Dose: 3 ml Albuterol/Ipratropium (Duoneb 3.0-0.5 Mg/3 Ml) 3 ml NEB Q4HRRT PRN PRN Reason: sob , wheezing Last Admin: 05/13/18 08:57 Dose: 3 ml Budesonide (Pulmicort) 0.5 mg NEB BIDRT [facility] Last Admin: 05/12/18 08:34 Dose: 0.5 mg Budesonide (Pulmicort) 0.5 mg NEB BID [facility] Last Admin: 05/13/18 08:57 Dose: 0.5 mg Enoxaparin Sodium (Lovenox) 40 mg SUBCUT Q24H [facility] Last Admin: 05/13/18 02:00 Dose: 40 mg Guaifenesin (Robitussin) 200 mg PO QID [facility] Last Admin: 05/13/18 11:46 Dose: 200 mg Hydrocortisone Sodium Succinate (Solu-Cortef) 40 mg IVPUSH Q8H [facility] Last Admin: 05/12/18 19:03 Dose: Not Given Sodium Chloride (Normal Saline) 1,000 mls @ 125 mls/hr IV ASDIRECTED [facility] Last Admin: 05/11/18 02:21 Dose: 125 mls/hr Lactated Ringer's (Ringers, Lactated) 1,000 mls @ 125 mls/hr IV ASDIRECTED [facility] Last Admin: 05/11/18 05:32 Dose: 125 mls/hr Magnesium Sulfate 2 gm/ Premix 50 mls @ 50 mls/hr IV ONETIME ONE Stop: 05/11/18 03:27 Last Admin: 05/11/18 04:03 Dose: 50 mls/hr Levofloxacin/Dextrose 750 mg/ (Premix) 150 mls @ 100 mls/hr IV Q24H [facility] Last Admin: 05/12/18 23:32 Dose: 100 mls/hr Lactated Ringer's (Ringers, Lactated) 1,000 mls @ 100 mls/hr IV ASDIRECTED [facility] Last Admin: 05/13/18 05:34 Dose: 100 mls/hr Lactated Ringer's (Ringers, Lactated) 1,000 mls @ 125 mls/hr IV ASDIRECTED [facility] Magnesium Sulfate 2 gm/ Premix 50 mls @ 50 mls/hr IV ONETIME ONE Stop: 05/12/18 19:25 Last Admin: 05/12/18 19:02 Dose: 50 mls/hr Iopamidol (Isovue Multipack-370 (76%)) 100 ml IVPUSH ONETIME ONE Stop: 05/11/18 19:50 Last Admin: 05/11/18 19:49 Dose: 100 ml Methylprednisolone Sodium Succinate (Solu-Medrol) 60 mg IVPUSH Q6H [facility] Last Admin: 05/11/18 14:23 Dose: 60 mg Methylprednisolone Sodium Succinate (Solu-Medrol) 125 mg IVPUSH Q6H [facility] Last Admin: 05/12/18 17:01 Dose: 125 mg Methylprednisolone Sodium Succinate (Solu-Medrol) 40 mg IVPUSH Q6H [facility] Last Admin: 05/13/18 11:46 Dose: 40 mg Metoprolol Tartrate (Lopressor) 25 mg PO Q12H [facility] Last Admin: 05/13/18 00:41 Dose: 25 mg Metoprolol Tartrate (Lopressor) 25 mg PO ONETIME ONE Stop: 05/11/18 15:43 Last Admin: 05/11/18 15:56 Dose: 25 mg Morphine Sulfate (Morphine) 2 mg IVPUSH Q2H PRN PRN Reason: Pain (severe 7-10) Stop: 05/12/18 02:26 Morphine Sulfate (Morphine) 2 mg IVPUSH Q2H PRN PRN Reason: Pain (severe 7-10) Stop: 05/12/18 02:26 Nitroglycerin (Nitro-Bid 2%) 1 gm TOP Q6H PRN PRN Reason: Chest Pain Last Admin: 05/11/18 15:57 Dose: 1 gm Pantoprazole Sodium (Protonix) 40 mg PO DAILY [facility] Last Admin: 05/13/18 09:39 Dose: 40 mg Potassium Chloride (Klor-Con M20) 40 meq PO ONETIME ONE Stop: 05/11/18 03:52 Last Admin: 05/11/18 04:13 Dose: 40 meq Potassium Chloride (Klor-Con M20) 40 meq PO ONETIME ONE Stop: 05/11/18 10:45 Last Admin: 05/11/18 11:17 Dose: 40 meq Prednisone (Prednisone) 60 mg PO ONETIME ONE Stop: 05/11/18 00:27 Last Admin: 05/11/18 00:31 Dose: 60 mg Sodium Chloride (Saline Flush) 10 ml FLUSH ASDIRECTED PRN PRN Reason: Keep Vein Open Sodium Chloride (Saline Flush) 2.5 ml FLUSH ASDIRECTED PRN PRN Reason: Keep Vein Open - Exam Quality Assessment: No: Supplemental Oxygen General: Alert, Oriented HEENT: Pupils Equal, Pupils Reactive Neck: Supple, Trachea Midline, No JVD, No Thyromegaly Lungs: Decreased Breath Sounds, Wheezing Cardiovascular: Regular Rate, Regular Rhythm, No Murmurs GI/Abdominal Exam: Normal Bowel Sounds, Soft, Non-Tender, No Organomegaly, No Distention Back Exam: Normal Inspection Extremities: Normal Inspection Skin: Warm, Dry, Intact Neurological: No New Focal Deficit Psy/Mental Status: Alert - Problem List & Annotations (1) Asthma exacerbation SNOMED Code(s): 083865612 Code(s): J45.901 - UNSPECIFIED ASTHMA WITH (ACUTE) EXACERBATION Status: Acute (2) Hx of repair of dissecting thoracic aortic aneurysm, [place] type A SNOMED Code(s): 068035673152588 Code(s): Z98.890 - OTHER SPECIFIED POSTPROCEDURAL STATES; Z86.79 - PERSONAL HISTORY OF OTHER DISEASES OF THE CIRCULATORY SYSTEM Status: Acute (3) Congenital heart disease Status: Acute (4) History of open heart surgery SNOMED Code(s): 008116995 Code(s): Z98.890 - OTHER SPECIFIED POSTPROCEDURAL STATES Status: Acute (5) CAP (community acquired pneumonia) SNOMED Code(s): 000574849 Code(s): J18.9 - PNEUMONIA, UNSPECIFIED ORGANISM Status: Acute (6) Exposure to chemical inhalation SNOMED Code(s): 489835998 Code(s): Z77.098 - CONTACT W AND EXPSR TO OTH HAZARD, CHIEFLY NONMED, CHEMICALS Status: Acute (7) Liver masses SNOMED Code(s): 152927800 Code(s): R16.0 - HEPATOMEGALY, NOT ELSEWHERE CLASSIFIED Status: Acute (8) Sinus tachycardia seen on equipment monitor phototypesetting SNOMED Code(s): 152509644 Code(s): R00.0 - TACHYCARDIA, UNSPECIFIED Status: Acute - Problem List Review Problem List Initiated/Reviewed/Updated: Yes - My Orders Last 24 Hours: My Active Orders 05/13/18 12:43 Ready for Discharge [RC] PER UNIT ROUTINE - Plan Plan:: will taper down solumedrol to 40 mg iv q 8 h , continue pulmicort neb BID and duoneb neb prn Levofloxacin 750 mg iv q 24 for CAP F/up BC Robitussin for cough For liver mass on CT angio- f/up MRI report. For tachycardia - will continue patient with metoprolol 25 mg po BID dvt prof : maru sq
== END 2018-05-13 14:00 | disposition home or self-care (01) ==
LOC: MW.ED 00:20 → MW.MS 02:15
PROVIDERS: ADMIT Internal Medicine; ATTEND Internal Medicine
DX: J45.901 Unspecified asthma with (acute) exacerbation (principal); J18.1 Lobar pneumonia, unspecified organism; R94.31 Abnormal electrocardiogram [ECG] [EKG]; R16.0 Hepatomegaly, not elsewhere classified; R00.0 Tachycardia, unspecified; F17.210 Nicotine dependence, cigarettes, uncomplicated; Z79.2 Long term (current) use of antibiotics; Z79.899 Other long term (current) drug therapy
CPT/HCPCS: 36415; 71045; 71045-26; 71275; 71275-26; 74175; 74175-26; 74181; 74181-26; 74182; 74182-26; 80048; 80053; 83880; 84484; 85025; 85027; 85379; 87040; 93005; 94640; 96360; 96361; 96365; 96372; 96375; 96376; 99285-25; A9270-GY; G0378; J1650; J1956; J2920; J3475; J7040; J7120; J7620-GY; Q9967